=== PATIENT | female | born 1945 | race Caucasian/White ===

== ENCOUNTER → 2017-06-18 | Outpatient (CLI) | payer MEDICARE, OTHER ==
--- NOTE | 2017-06-18 10:07 | REPMRS ---
Patient History The patient states she had a clinical breast exam in 06/2017. Patient is postmenopausal and has history of melanoma insitu at age 53. Family history of pancreatic cancer in sister at age 71, colorectal cancer in paternal aunt at age 50 or over, breast cancer in paternal cousin under age 50, prostate cancer in paternal uncle at age 50 or over, and colorectal cancer in paternal uncle at age 50 or over. Benign excisional biopsy of the right breast. Digital Woman Screen Mammo: June 18, 2017 - Exam #: [id number] Bilateral CC and MLO view(s) were taken. Technologist: Victoria Stuart Technologist Prior study comparison: June 07, 2016, digital woman screen mammo performed at [facility]. May 04, 2015, digital woman screen mammo performed at [facility]. April 09, 2014, digital woman screen mammo performed at [facility]. FINDINGS: There are scattered fibroglandular densities. There has been no change in the appearance of the mammogram from the prior studies. There is a mild amount of scattered fibroglandular density which is fairly symmetric. There is no interval development of dominant mass, architectural distortion, or clustered microcalcification suggestive of malignancy. ASSESSMENT: BI-RADS/ACR category 1 mammogram. Negative. Recommendation Routine screening mammogram in 1 year (for women over age 40). This mammogram was interpreted with the aid of an FDA-approved computer-aided dectection system. Electronically Signed By: Lincoln Waller MD 06/18/17 [id number]
--- NOTE | 2017-06-19 09:16 | DEXA ---
AP SPINE L1 - L4 1.007 -1.5 0.2 LT FEMUR TOTAL 0.761 -2.0 -0.4 RT FEMUR TOTAL 0.738 -2.1 -0.6 TOTAL BODY TOTAL OTHER % COMMENTS: There is low bone density of the spine and hips. The density of the spine has decreased 0.6% since the initial exam on 1999. The spine density has decreased 5.2% since the most recent exam on 05/04/2015. The density of the left hip has decreased 11.8% since the initial exam on 1999. The density of the left hip has decreased 6.2% since the most recent exam on . The density of the right hip has decreased 12.1% since the initial exam on 05/30. The density of the right hip has decreased 5.3% since the most recent exam on . FOLLOW-UP: Recommendation for the next bone density exam: 2 years. TEVIN
== END ==
LOC: M WHC 08:32
PROVIDERS: ATTEND Nurse Practitioner Family
DX: Z01.419 Encounter for gynecological examination (general) (routine) without abnormal findings (principal); Z12.31 Encounter for screening mammogram for malignant neoplasm of breast; M81.0 Age-related osteoporosis without current pathological fracture; Z78.0 Asymptomatic menopausal state; Z12.12 Encounter for screening for malignant neoplasm of rectum; Z92.89 Personal history of other medical treatment; Z80.0 Family history of malignant neoplasm of digestive organs
CPT/HCPCS: 77080; 82270; G0101; G0202

== ENCOUNTER → 2017-06-25 | Outpatient (REF) | payer MEDICARE, OTHER | LOC: M LAB REF 16:07 | PROVIDERS: ATTEND Nurse Practitioner Adult Health | DX: M81.0 Age-related osteoporosis without current pathological fracture (principal) ==

== ENCOUNTER 2017-12-11 11:58 | Emergency (ER) | payer MEDICARE, OTHER ==
[2017-12-11] MEDS: ONDANSETRON 4MG/2ML VIAL (J2405) IV (13:04)
[2017-12-11] MEDS: KETOROLAC 30 MG/ML VIAL (J1885) IV (13:05)
[2017-12-11 13:06] LABS: BASO % 0.3 % (0.0-1.0); EOS % 0.1 % (0.0-3.0); HEMATOCRIT 43.4 % (36.0-47.0); HEMOGLOBIN 14.8 g/dl (12.0-16.0); IMMATURE GRANULOCYTE % 0.3 % (0-3.0); LYMPH # 0.6 10^3/uL (1.5-4.5); MEAN CORPUSCULAR HGB CONC 34.1 g/dl (32.0-36.5); MEAN CORPUSCULAR VOLUME 90.8 fl (80.0-96.0); MONO # 0.2 10^3/uL (0.0-0.8); NEUTROPHILS # 9.4 10^3/uL (1.8-7.7); NEUTROPHILS % 91.3 % (36.0-66.0); PLATELET COUNT, AUTOMATED 214 10^3/uL (150-450); RED BLOOD COUNT 4.78 10^6/uL (4.00-5.40); RED CELL DISTRIBUTION WIDTH 12.3 % (11.5-14.5); WHITE BLOOD COUNT 10.3 10^3/uL (4.0-10.0)
[2017-12-11 13:12] LABS: AMORPHOUS SEDIMENT RFX SMALL (NEGATIVE); KETONE, URINE AUTO RFX TRACE mg/dL (NEGATIVE); LEUKOCYTE ESTERASE UR AUTO RFX NEGATIVE (NEGATIVE); MUCUS, URINE RFX SMALL (NEGATIVE); NITRITE, URINE AUTO RFX NEGATIVE (NEGATIVE); RBC, URINE AUTO RFX 9 /HPF (0-3); SPECIFIC GRAVITY UR AUTO RFX 1.014 (1.002-1.035); SQUAM EPITHELIAL CELL UR AURFX 0 /HPF (0-6); WBC, URINE AUTO RFX 2 /HPF (0-3)
[2017-12-11 13:44] LABS: ALBUMIN 4.4 GM/DL (3.2-5.2); ALBUMIN/GLOBULIN RATIO 1.29 (1.00-1.93); ALKALINE PHOSPHATASE 84 U/L (45-117); ALT/SGPT 33 U/L (12-78); ANION GAP 6 MEQ/L (8-16); AST/SGOT 20 U/L (7-37); BILIRUBIN,DIRECT < 0.1 MG/DL (0.0-0.2); BILIRUBIN,TOTAL 0.4 MG/DL (0.2-1.0); BLOOD UREA NITROGEN 16 MG/DL (7-18); CALCIUM LEVEL 9.1 MG/DL (8.8-10.2); CARBON DIOXIDE LEVEL 30 MEQ/L (21-32); CHLORIDE LEVEL 105 MEQ/L (98-107); CREATININE FOR GFR 0.61 MG/DL (0.55-1.30); GLOMERULAR FILTRATION RATE > 60.0 (>39); GLUCOSE, FASTING 115 MG/DL (70-100); POTASSIUM SERUM 3.6 MEQ/L (3.5-5.1); SODIUM LEVEL 141 MEQ/L (136-145); TOTAL PROTEIN 7.8 GM/DL (6.4-8.2)
== END 2017-12-11 14:11 | disposition home or self-care (01) ==
LOC: M ED 11:58
DX: N39.0 Urinary tract infection, site not specified (principal); K44.9 Diaphragmatic hernia without obstruction or gangrene; Z79.899 Other long term (current) drug therapy
CPT/HCPCS: J2405

== ENCOUNTER → 2018-06-19 | Outpatient (REF) | payer MEDICARE, OTHER | LOC: M SFHCWAGY 08:54 | DX: Z12.4 Encounter for screening for malignant neoplasm of cervix (principal); N95.2 Postmenopausal atrophic vaginitis ==

== ENCOUNTER → 2018-06-19 | Outpatient (CLI) | payer MEDICARE, OTHER | LOC: M WHC 08:32 | DX: Z12.31 Encounter for screening mammogram for malignant neoplasm of breast (principal); Z78.0 Asymptomatic menopausal state; Z12.4 Encounter for screening for malignant neoplasm of cervix; Z92.89 Personal history of other medical treatment; N95.2 Postmenopausal atrophic vaginitis; Z80.0 Family history of malignant neoplasm of digestive organs; Z12.12 Encounter for screening for malignant neoplasm of rectum | CPT/HCPCS: G0123 ==

== ENCOUNTER → 2018-06-21 | Outpatient (REF) | payer MEDICARE, OTHER ==
[2018-06-21 18:40] LABS: APPEARANCE, URINE CLEAR (CLEAR); BACTERIA, URINE AUTO NEGATIVE (NEGATIVE); BILIRUBIN, URINE AUTO NEGATIVE (NEGATIVE); BLOOD, URINE BLOOD NEGATIVE (NEGATIVE); COLOR, URINE YELLOW (YELLOW); GLUCOSE, URINE (UA) AUTO NEGATIVE (NEGATIVE); KETONE, URINE AUTO NEGATIVE (NEGATIVE); LEUKOCYTE ESTERASE, URINE AUTO NEGATIVE (NEGATIVE); MUCUS, URINE SMALL (NEGATIVE); NITRITE, URINE AUTO NEGATIVE (NEGATIVE); PROTEIN, URINE AUTO NEGATIVE (NEGATIVE); RBC, URINE AUTO 4 /HPF (0-3); SPECIFIC GRAVITY URINE AUTO 1.018 (1.002-1.035); SQUAMOUS EPITHELIAL CELL UR AU 0 /HPF (0-6); UROBILINOGEN, URINE AUTO 0.2 mg/dL (0.0-2.0); WBC, URINE AUTO 1 /HPF (0-3)
== END ==
LOC: M LAB REF 17:00
DX: N39.0 Urinary tract infection, site not specified (principal)
CPT/HCPCS: 81001

== ENCOUNTER → 2018-07-18 | Outpatient (REF) | payer MEDICARE, OTHER ==
[2018-07-19 10:32] LABS: HEPATITIS C VIRUS ABY INDEX < 0.0 INDEX (<0.8)
== END ==
LOC: M LAB REF 12:11
DX: Z20.828 Contact with and (suspected) exposure to other viral communicable diseases (principal)
CPT/HCPCS: 86803

== ENCOUNTER → 2019-01-28 | Outpatient (REF) | payer MEDICARE, OTHER ==
[~2019-01-28] MED LIST: KETO10TAB PO; MACR100C43 PO; OMEP20CA3; ROSU10TA5; ZOFR4TAB14 PO
[2019-01-28 22:06] LABS: AMORPHOUS SEDIMENT SMALL (NEGATIVE); APPEARANCE, URINE HAZY (CLEAR); BACTERIA, URINE AUTO 1+ (NEGATIVE); BILIRUBIN, URINE AUTO NEGATIVE (NEGATIVE); BLOOD, URINE BLOOD 3+ (NEGATIVE); COLOR, URINE YELLOW (YELLOW); GLUCOSE, URINE (UA) AUTO NEGATIVE (NEGATIVE); KETONE, URINE AUTO NEGATIVE (NEGATIVE); LEUKOCYTE ESTERASE, URINE AUTO 3+ (NEGATIVE); NITRITE, URINE AUTO POSITIVE (NEGATIVE); PROTEIN, URINE AUTO NEGATIVE (NEGATIVE); RBC, URINE AUTO 8 /HPF (0-3); SPECIFIC GRAVITY URINE AUTO 1.006 (1.002-1.035); SQUAMOUS EPITHELIAL CELL UR AU 0 /HPF (0-6); UROBILINOGEN, URINE AUTO 0.2 mg/dL (0.0-2.0); WBC, URINE AUTO 15 /HPF (0-3)
== END ==
LOC: M LAB REF 08:25
PROVIDERS: ATTEND Physician Assistant Medical
DX: N39.0 Urinary tract infection, site not specified (principal)

== ENCOUNTER → 2019-06-20 | Outpatient (CLI) | payer MEDICARE, OTHER ==
[~2019-06-20] MED LIST changes: -OMEP20CA3; +OMEP20CA4; -ROSU10TA5; +ROSU10TA6
--- NOTE | 2019-06-20 12:26 | REPMRS ---
Patient History The patient states she had a clinical breast exam in 06/2019. Patient is postmenopausal and has history of melanoma cancer at age 53. Family history of breast cancer under age 50 in paternal cousin, prostate cancer at age 50 or over in paternal uncle, colorectal cancer at age 50 or over in paternal uncle, pancreatic cancer at age 71 in sister, colorectal cancer at age 50 or over in paternal aunt, colorectal cancer at age 50 or over in paternal aunt. Benign excisional biopsy of the right breast. No Hormone Replacement Therapy 3D TOMOSYNTHESIS WAS PERFORMED. The [facility] lifetime risk for breast cancer is 5.8%. Digital Woman Screen Mammo: June 20, 2019 - Exam #: [id number] Bilateral CC and MLO view(s) were taken. Technologist: Liana Gurrola, Technologist Prior study comparison: June 19, 2018, bilateral digital woman screen mammo performed at [facility]. June 18, 2017, digital woman screen mammo performed at [facility]. FINDINGS: The breast tissue is heterogeneously dense. This may lower the sensitivity of mammography. There has been no change in the appearance of the mammogram from the prior studies. There is a moderate amount of residual fibroglandular tissue which is fairly symmetric. There is no interval development of dominant mass, areas of architectural distortion, or clustered microcalcification typical of malignancy. Assessment: BI-RADS/ACR category 1 mammogram. Negative Mammogram. Recommendation Routine screening mammogram in 1 year (for women over age 40). This mammogram was interpreted with the aid of an FDA-approved computer-aided dectection system. Electronically Signed By: Sander Ruiz MD 06/20/19 [id number]
--- NOTE | 2019-06-23 11:26 | DEXA ---
AP SPINE L1 - L4 1.097 -0.8 0.9 LT FEMUR TOTAL 0.775 -1.8 -0.2 LT NECK 0.713 -2.3 -0.5 RT FEMUR TOTAL 0.743 -2.1 -0.4 RT NECK 0.705 -2.4 -0.5 TOTAL BODY TOTAL OTHER COMMENTS: Normal bone densitometry of the spine. There is low bone density of the hips. The increased density of the spine does represent a significant change. The increased density of the left hip does not represent a significant change. The increased density of the right hip does not represent a significant change. The density of the spine has increased 8.3% since the initial exam on 05/30/2000. The spine density has increased 8.9% since the most recent exam on 06/18/2017. The density of the left hip has decreased 10.2% since the initial exam on 05/30/2000. The density of the left hip has increased 1.8% since the most recent exam on 06/18/2017. The density of the right hip has decreased 11.5% since the initial exam on 05/30/2000. The density of the right hip has increased 0.7% since the most recent exam on 06/18/2017. FOLLOW-UP: Recommendation for the next bone density exam: 2 years. TEVIN
== END ==
LOC: M WHC 09:35
PROVIDERS: ATTEND Nurse Practitioner Family
DX: Z01.419 Encounter for gynecological examination (general) (routine) without abnormal findings (principal); Z12.31 Encounter for screening mammogram for malignant neoplasm of breast; M81.0 Age-related osteoporosis without current pathological fracture; Z78.0 Asymptomatic menopausal state; Z85.820 Personal history of malignant melanoma of skin; Z80.0 Family history of malignant neoplasm of digestive organs; Z86.018 Personal history of other benign neoplasm; Z12.12 Encounter for screening for malignant neoplasm of rectum
CPT/HCPCS: 77063; 77067; 77080; 82270; G0101; G0123

== ENCOUNTER → 2019-06-20 | Outpatient (REF) | payer MEDICARE, OTHER | LOC: M SFHCWAGY 10:04 | PROVIDERS: ATTEND Nurse Practitioner Family | DX: Z12.4 Encounter for screening for malignant neoplasm of cervix (principal); N95.8 Other specified menopausal and perimenopausal disorders ==

== ENCOUNTER 2019-10-16 13:42 | Outpatient (RCR) | payer MEDICARE, OTHER ==
[~2019-10-16 13:42] MED LIST changes: +OMEP1CAP73; -OMEP20CA4
== END 2019-10-17 ==
LOC: M PT 13:42
PROVIDERS: ATTEND Nurse Practitioner Family
DX: N81.6 Rectocele (principal); N81.10 Cystocele, unspecified; N81.4 Uterovaginal prolapse, unspecified

== ENCOUNTER 2019-11-04 09:59 | Outpatient (RCR) | payer MEDICARE, OTHER | END 2019-11-15 | LOC: M PT 09:59 | PROVIDERS: ATTEND Nurse Practitioner Family | DX: N81.6 Rectocele (principal); N81.10 Cystocele, unspecified; N81.4 Uterovaginal prolapse, unspecified ==

== ENCOUNTER 2019-11-20 14:25 | Outpatient (RCR) | payer MEDICARE, OTHER | END 2019-12-16 | LOC: M PT 14:25 | PROVIDERS: ATTEND Nurse Practitioner Family | DX: Z51.89 Encounter for other specified aftercare (principal); N81.6 Rectocele; N81.10 Cystocele, unspecified; N81.4 Uterovaginal prolapse, unspecified ==

== ENCOUNTER → 2020-02-17 | Outpatient (REF) | payer MEDICARE, OTHER | LOC: M LAB REF 10:34 | PROVIDERS: ATTEND Nurse Practitioner Adult Health | DX: M81.0 Age-related osteoporosis without current pathological fracture (principal) ==

== ENCOUNTER → 2020-03-18 | Outpatient (CLI) | payer MEDICARE, OTHER ==
--- NOTE | 2020-03-18 08:30 | REP ---
Clinical: Right lower quadrant pain. Technique: Real time donaldson scale ultrasound examination using curved array transducer. Findings: Directed ultrasound examination of the right lower quadrant demonstrates normal appearing appendix measuring 5.3 mm diameter. No adjacent adenopathy or free fluid is appreciated. No significant specific pain was elicited with transducer pressure. Impression: Normal right lower quadrant with normal appendix. Electronically Signed by Moy Garrett MD 03/18/2020 08:21 A
== END ==
LOC: M RAD 07:00
PROVIDERS: ATTEND Internal Medicine Gastroenterology
DX: K38.9 Disease of appendix, unspecified (principal)

== ENCOUNTER → 2020-06-03 | Outpatient (REF) | payer MEDICARE, OTHER ==
[~2020-06-03] MED LIST changes: +ASPI81CH33 PO; +CALCIUM CITRATE PO; +CENT1TAB PO; +CVS500CA5 PO; +ESTR1CRE PV; +FISH13602 PO; +FISHCAP PO; +FOLITAB11 PO; +NYST1CRE15 TOP; -OMEP1CAP73; +OMEP1CAP73 PO; +PROL60SO SC; +ROSU5TAB5 PO; +TGTCAP PO; +VITA-157 PO; +VITA500C24 PO; +ZYRTTAB8 PO; +[UNRECOGNIZED DRUG - OTHER] PO; +vitamin d3 PO
== END ==
LOC: M LAB REF 09:39
PROVIDERS: ATTEND Physician Assistant
DX: R31.9 Hematuria, unspecified (principal)

== ENCOUNTER → 2020-06-08 | Outpatient (REF) | payer MEDICARE, OTHER | LOC: M LAB REF 17:20 | PROVIDERS: ATTEND Nurse Practitioner Adult Health | DX: R50.9 Fever, unspecified (principal) ==

== ENCOUNTER → 2020-06-08 | Outpatient (REF) | payer MEDICARE, OTHER ==
[2020-06-08 14:03] LABS: INFLUENZA A AMPLIFICATION NEGATIVE (NEGATIVE); INFLUENZA B AMPLIFICATION NEGATIVE (NEGATIVE)
== END ==
LOC: M LAB REF 11:40
PROVIDERS: ATTEND Nurse Practitioner Adult Health
DX: R50.9 Fever, unspecified (principal)

== ENCOUNTER → 2020-06-10 | Outpatient (REF) | payer MEDICARE, OTHER ==
[2020-06-10 11:51] LABS: INR 0.95; PROTHROMBIN TIME 12.8 SECONDS (12.5-14.3)
[2020-06-10 12:04] LABS: FERRITIN 996 NG/ML (8-252); IRON (FE) 49 UG/DL (50-170); LIPASE 256 U/L (73-393); PERCENT SATURATION 14.6 % (13.2-45.0); TOTAL IRON BINDING CAPACITY 335 UG/DL (250-450)
[2020-06-10 12:10] LABS: VITAMIN B12 LEVEL 1654 PG/ML (247-911)
[2020-06-10 12:20] LABS: HEPATITIS B SURFACE ANTIGEN NEGATIVE (NEGATIVE)
[2020-06-10 12:46] LABS: HEPATITIS C VIRUS ABY INDEX 0.2 INDEX (<0.8)
[2020-06-10 12:47] LABS: HEPATITIS B CORE ANTIBODY IGM NEGATIVE (NEGATIVE)
[2020-06-10 12:50] LABS: HEPATITIS A ANTIBODY IGM NEGATIVE (NEGATIVE)
[2020-06-11 15:07] LABS: ANTINUCLEAR ANTIBODIES DIRECT Negative (Negative)
== END ==
LOC: M LAB REF 11:07
PROVIDERS: ATTEND Nurse Practitioner Adult Health
DX: R50.9 Fever, unspecified (principal); R53.81 Other malaise; R74.8 Abnormal levels of other serum enzymes

== ENCOUNTER → 2020-06-10 | Outpatient (CLI) | payer MEDICARE, OTHER ==
[~2020-06-10] MED LIST changes: +GASTROGRAFIN SOLUTION 30ML (Q9963) As Ordered ONE; +ISOVUE-370 76% 100ML VIAL As Ordered ONE
--- NOTE | 2020-06-10 14:05 | REPVR ---
PROCEDURE INFORMATION: Exam: CT Abdomen And Pelvis Without And With Contrast Exam date and time: 06/10/2020 1:46 PM Age: 74 years old Clinical indication: Fever; Additional info: Fever, unspecified TECHNIQUE: Imaging protocol: Computed tomography of the abdomen and pelvis without and with intravenous contrast. Delayed images were also obtained. Radiation optimization: All CT scans at this facility use at least one of these dose optimization techniques: automated exposure control; mA and/or kV adjustment per patient size (includes targeted exams where dose is matched to clinical indication); or iterative reconstruction. Contrast material: ISOVUE 370; Contrast volume: 100 ml; Contrast route: INTRAVENOUS (IV); COMPARISON: CT ABD PELVIS W/O CONTRAST 12/11/2017 1:14 PM FINDINGS: Heart: Mitral annular calcification is present. Liver: 7 mm hepatic benign cyst. The liver demonstrates a few small granulomatous calcifications. Gallbladder and bile ducts: Normal. No calcified stones. No ductal dilation. Pancreas: Normal. No ductal dilation. Spleen: The spleen demonstrates several small calcifications consistent with healed granulomatous disease. Adrenals: Normal. No mass. Kidneys and ureters: 4.4 mm left renal benign cyst. No specific followup required/recommended. Stomach and bowel: There is a dilated early opacifying left gonadal vein. Left parauterine vascular collaterals are present also supplying right parauterine collaterals. Appendix: The vermiform appendix is normal. Intraperitoneal space: Unremarkable. No free air. No significant fluid collection. Vasculature: Atherosclerotic calcifications are present involving the RCA coronary artery. Lymph nodes: No enlarged lymph nodes. Urinary bladder: The urinary bladder is partially decompressed and somewhat difficult to assess. Reproductive: Unremarkable as visualized. Bones/joints: Mild L2-L3 spondylosis. Lower thoracic spine, T12, L1-L2, and L2-L3 degenerative disc disease. Bilateral lower lumbar facet primary osteoarthritis. Soft tissues: Unremarkable. IMPRESSION: 1. Small stable hepatic benign cyst. No specific followup required/recommended. 2. 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 3. Coronary atherosclerosis. COMMENTS: Consistent with the [employer]'s Incidental Findings Committee white paper (J Am Chaka Radiol 2018): Any incidental renal lesion less than 1.0 cm or classified as too small to characterize, or any incidental cystic renal lesion characterized as simple-appearing, is likely benign. No follow-up imaging is recommended for these lesions per consensus recommendations based on imaging criteria. Electronically signed by: Chico Reveles On 06/10/2020 14:05:35 PM
== END ==
LOC: M RAD 11:36
PROVIDERS: ATTEND Nurse Practitioner Adult Health
DX: K76.89 Other specified diseases of liver (principal); N28.1 Cyst of kidney, acquired; R50.9 Fever, unspecified; R53.81 Other malaise; R74.8 Abnormal levels of other serum enzymes
CPT/HCPCS: 74178; 82607; 82728; 83550; 83690; 85610; 86038; 86705; 86709; 86803; 87040; 87340; Q9963; Q9967

== ENCOUNTER → 2020-06-11 | Outpatient (REF) | payer MEDICARE, OTHER ==
[~2020-06-11] MED LIST changes: -GASTROGRAFIN SOLUTION 30ML (Q9963) As Ordered ONE; -ISOVUE-370 76% 100ML VIAL As Ordered ONE
[2020-06-16 07:07] LABS: CMV QUANT DNA PCR (PLASMA) Negative (Negative); EBV AB TO NUCLEAR ANTIGEN 58.8 U/mL (0.0-17.9); EBV VIRAL CAPSID AG IgM <36.0 U/mL (0.0-35.9); HBV HBV DNA not detected IU/mL (.); HEPATITIS C QUANTITATION HCV Not Detected IU/mL (.)
== END ==
LOC: M LAB REF 11:17
PROVIDERS: ATTEND Nurse Practitioner Adult Health
DX: R94.5 Abnormal results of liver function studies (principal)

== ENCOUNTER → 2020-06-22 | Outpatient (CLI) | payer MEDICARE, OTHER ==
--- NOTE | 2020-06-22 12:57 | REPMRS ---
Patient History The patient states she had a clinical breast exam in 2019. Family history of breast cancer under age 50 in paternal cousin, prostate cancer at age 50 or over in paternal uncle, colorectal cancer at age 50 or over in paternal uncle, pancreatic cancer at age 71 in sister, colorectal cancer at age 50 or over in paternal aunt, colorectal cancer at age 50 or over in paternal aunt. Benign excisional biopsy of the right breast. No Hormone Replacement Therapy 3D TOMOSYNTHESIS WAS PERFORMED. The [facility] lifetime risk for breast cancer is 5.4%. VOLPARA DENSITY B. Digital Woman Screen Mammo: June 22, 2020 - Exam #: [id number] Bilateral CC and MLO view(s) were taken. Technologist: Bridgette Gustafsonologist Prior study comparison: June 20, 2019, bilateral digital woman screen mammo performed at [facility]. June 19, 2018, bilateral digital woman screen mammo performed at [facility]. FINDINGS: There are scattered fibroglandular densities. There has been no change in the appearance of the mammogram from the prior studies. There is a mild amount of residual fibroglandular tissue which is fairly symmetric. There is no interval development of dominant mass, architectural distortion, or clustered microcalcification suggestive of malignancy. Assessment: BI-RADS/ACR category 1 mammogram. Negative Mammogram. Recommendation Routine screening mammogram in 1 year (for women over age 40). This mammogram was interpreted with the aid of an FDA-approved computer-aided dectection system. Electronically Signed By: Sander Ruiz MD 06/22/20 [id number]
== END ==
LOC: M WHC 10:53
PROVIDERS: ATTEND Nurse Practitioner Family
DX: Z12.31 Encounter for screening mammogram for malignant neoplasm of breast (principal); Z86.018 Personal history of other benign neoplasm

== ENCOUNTER → 2021-06-28 | Outpatient (CLI) | payer MEDICARE, OTHER ==
[~2021-06-28] MED LIST changes: -VITA-157 PO; +VITAE40CA PO
--- NOTE | 2021-06-28 16:21 | REPMRS ---
Patient History The patient states she had a clinical breast exam in June 2021. Family history of breast cancer under age 50 in paternal cousin, prostate cancer at age 50 or over in paternal uncle, colorectal cancer at age 50 or over in paternal uncle, pancreatic cancer at age 71 in sister, colorectal cancer at age 50 or over in paternal aunt, colorectal cancer at age 50 or over in paternal aunt. Benign excisional biopsy of the right breast. No Hormone Replacement Therapy Tomosynthesis is performed. Volpara breast density is b. [facility] lifetime risk of breast cancer 5.0%. Patient states no breast complaints today. Patient has signed MRS History Sheet. Digital Woman Screen Mammo: June 28, 2021 - Exam #: [id number] Bilateral CC and MLO view(s) were taken. Technologist: Cece Alexandra, Technologist Prior study comparison: June 22, 2020, bilateral digital woman screen mammo performed at [facility]. June 20, 2019, bilateral digital woman screen mammo performed at [facility]. FINDINGS: There are scattered fibroglandular densities. There has been no change in the appearance of the mammogram from the prior studies. There is a mild amount of residual fibroglandular tissue which is fairly symmetric. There is no interval development of dominant mass, architectural distortion, or clustered microcalcification suggestive of malignancy. Assessment: BI-RADS/ACR category 1 mammogram. Negative Mammogram. Recommendation Routine screening mammogram in 1 year (for women over age 40). This mammogram was interpreted with the aid of an FDA-approved computer-aided dectection system. Electronically Signed By: Sander Ruiz MD 06/28/21 [id number]
== END ==
LOC: M WHC 15:05
PROVIDERS: ATTEND Nurse Practitioner Women's Health
DX: Z12.31 Encounter for screening mammogram for malignant neoplasm of breast (principal); Z86.018 Personal history of other benign neoplasm
CPT/HCPCS: 77063; 77067; G0463

== ENCOUNTER → 2021-09-27 | Outpatient (CLI) | payer MEDICARE, OTHER ==
[2021-09-27 10:48] LABS: INR 0.98; PROTHROMBIN TIME 13.4 SECONDS (12.7-14.5)
[2021-09-27 11:12] LABS: CHOLESTEROL LEVEL 195 MG/DL (<200); CHOLESTEROL RISK RATIO 3.362 (<5); GLUCOSE, FASTING 89 MG/DL (70-100); HDL CHOLESTEROL 58 MG/DL (>40); LDL CHOLESTEROL 116 MG/DL (<100); NON-HDL-C 137 MG/DL; TOTAL PROTEIN 7.2 GM/DL (6.4-8.2); TRIGLYCERIDES LEVEL 105 MG/DL (<150)
[2021-09-29 09:40] LABS: ALBUMIN 4.58 GM/DL (3.29-5.55); ALBUMIN % 63.6 % (55.8-66.1); ALPHA-1-GLOBULINS 0.29 GM/DL (0.17-0.41)
[2021-09-29 09:41] LABS: ALPHA-2-GLOBULINS 0.81 GM/DL (0.42-0.99); ALPHA-2-GLOBULINS % 11.3 % (7.1-11.8); BETA-1-GLOBULINS 0.44 GM/DL (0.28-0.60); BETA-1-GLOBULINS % 6.1 % (4.7-7.2); BETA-2-GLOBULINS 0.32 GM/DL (0.19-0.55); BETA-2-GLOBULINS % 4.4 % (3.2-6.5); GAMMA GLOBULIN % 10.6 % (11.1-18.8); GAMMA GLOBULINS 0.76 GM/DL (0.65-1.58)
[2021-09-29 14:09] LABS: ANTINUCLEAR ANTIBODIES DIRECT Negative (Negative)
== END ==
LOC: M LAB 09:17
PROVIDERS: ATTEND Optometrist
DX: H34.8392 Tributary (branch) retinal vein occlusion, unspecified eye, stable (principal); Z79.899 Other long term (current) drug therapy

== ENCOUNTER → 2022-07-13 | Outpatient (CLI) | payer MEDICARE, OTHER ==
[~2022-07-13] MED LIST changes: +BIOT10009 PO
== END ==
LOC: M WHC 13:30
PROVIDERS: ATTEND Nurse Practitioner Family
DX: Z12.31 Encounter for screening mammogram for malignant neoplasm of breast (principal); Z13.820 Encounter for screening for osteoporosis

== ENCOUNTER → 2022-09-26 | Outpatient (CLI) | payer MEDICARE, OTHER | LOC: M WHC 10:03 | PROVIDERS: ATTEND Nurse Practitioner Adult Health | DX: M81.0 Age-related osteoporosis without current pathological fracture (principal) ==

== ENCOUNTER → 2023-10-15 | Outpatient (CLI) | payer MEDICARE, OTHER ==
[~2023-10-15] MED LIST changes: +[UNRECOGNIZED DRUG - OTHER] PO; +collagen peptides PO
== END ==
LOC: M WHC 14:16
PROVIDERS: ATTEND Nurse Practitioner Family
DX: Z12.31 Encounter for screening mammogram for malignant neoplasm of breast (principal)

== ENCOUNTER → 2024-07-07 | Outpatient (CLI) | payer MEDICARE, OTHER ==
[~2024-07-07] MED LIST changes: +PROHANCE 279.3MG/ML 5ML VIAL ONE; -ROSU10TA6; +ROSU10TA61; +ROSU5TAB40 PO; -ROSU5TAB5 PO
== END ==
LOC: M PLAIMG 14:19
PROVIDERS: ATTEND Nurse Practitioner Adult Health
DX: R44.0 Auditory hallucinations (principal)
CPT/HCPCS: 70553; A9576

== ENCOUNTER → 2024-10-17 | Outpatient (CLI) | payer MEDICARE, OTHER ==
[~2024-10-17] MED LIST changes: -PROHANCE 279.3MG/ML 5ML VIAL ONE; -ROSU5TAB40 PO; +ROSU5TAB49 PO
== END ==
LOC: M WHC 08:19
PROVIDERS: ATTEND Nurse Practitioner Adult Health
DX: Z12.31 Encounter for screening mammogram for malignant neoplasm of breast (principal); Z13.820 Encounter for screening for osteoporosis; M85.89 Other specified disorders of bone density and structure, multiple sites; R92.323 Mammographic fibroglandular density, bilateral breasts